=== PATIENT | male | born 1945 | race Caucasian/White ===

== ENCOUNTER 2022-01-04 22:01 | Inpatient (IN) | payer MEDICARE ==
[~2022-01-04] VITALS: Ht 182.9 cm; Wt 71.7 kg
[~2022-01-04 22:01] MED LIST: ANORO ELLIPTA1 EACH PO; CARDIZEM CD120 MG PO; CERTAGEN1 EACH PO; CLARITIN10 MG PO; DEPAKOTE250 MG PO; IRON325 M1 PO; KEPPRA1000 MG PO; LASIX20 MG PO; LEVAQUIN500 MG PO; LOVAZA1 GM PO; PREDNISONE 20MG20 MG PO; PRILOSEC20 MG PO; PROAIR HFA8.5 GM PO; PROSCAR5 MG PO; SYNTHROID100 MCG PO; TAMIFLU 75MG CA75 MG PO; TESSALON PERLE100 MG PO; XARELTO20 MG PO; ZESTRIL2.5 MG PO
[2022-01-04 23:43] LABS: BASOPHIL 0.4 % (0-2); EOSINOPHIL 0.2 % (0-7); HCT 42.2 % (42.0-52.0); HGB 14.5 g/dl (13.2-18.0); LYMPHOCYTE 9.4 % (15-48); MCHC 34.4 g/dL (32.0-36.0); MCV 93.2 fL (78.0-100.0); MONOCYTE 20.8 % (0-12); MPV 10.3 fL (6.0-9.5); NRBC 0; PLT 174 K/uL (150-400); RBC 4.53 M/uL (4.70-6.00); RDW 12.9 % (11.5-14.0); WBC 12.2 K/uL (4.0-10.5)
[2022-01-04 23:50] LABS: NEUTROPHIL 68.8 % (41-80)
[2022-01-05 00:08] LABS: BUN/CREAT RATIO (CALC) 20.6 RATIO; CREATININE 1.55 mg/dL (0.67-1.17); GLOBULIN (CALCULATION) 4.5 g/dL; POTASSIUM 4.5 mmol/L (3.5-5.1); TOTAL PROTEIN 7.5 g/dL (6.4-8.2)
[2022-01-05 05:15] LABS: CORONAVIRUS 2019 SARS-COV-2 NEGATIVE (NEGATIVE); INFLUENZA A NAA NEGATIVE (NEGATIVE)
[2022-01-05 07:26] LABS: HCT 36.6 % (42.0-52.0); HGB 12.8 g/dl (13.2-18.0); MCH 32.1 pg (25.0-31.0); MCV 91.7 fL (78.0-100.0); MPV 10.5 fL (6.0-9.5); RBC 3.99 M/uL (4.70-6.00); RDW 12.9 % (11.5-14.0); WBC 9.4 K/uL (4.0-10.5)
[2022-01-05 08:15] LABS: ALBUMIN 2.6 g/dL (3.4-5.0); BILIRUBIN - TOTAL 0.7 mg/dL (0.2-1.0); CREATININE 1.54 mg/dL (0.67-1.17); POTASSIUM 3.8 mmol/L (3.5-5.1); TOTAL PROTEIN 6.6 g/dL (6.4-8.2)
[2022-01-05 11:02] LABS: FOLIC ACID (SERUM) 33.3 ng/mL (8.6-58.9)
--- NOTE | 2022-01-06 14:01 | NUR ---
Mr. Lara lives at home with his spouse. He has 02 for nocturnal use. He does not have a portable tank. He is independent and works part-time [facility] [employer]. - Mr. Lara was transferred to [facility] on 01/05.
== END 2022-01-05 18:02 | disposition other institution (70) | DRG 871 ==
LOC: FER 22:01 → FTCU 01-05 06:28
PROVIDERS: Internal Medicine; ADMIT Internal Medicine
DX: A41.9 Sepsis, unspecified organism (principal); I50.23 Acute on chronic systolic (congestive) heart failure; J96.21 Acute and chronic respiratory failure with hypoxia; I48.92 Unspecified atrial flutter; J44.1 Chronic obstructive pulmonary disease with (acute) exacerbation; J44.0 Chronic obstructive pulmonary disease with (acute) lower respiratory infection; N17.9 Acute kidney failure, unspecified; E87.1 Hypo-osmolality and hyponatremia; I13.0 Hypertensive heart and chronic kidney disease with heart failure and stage 1 through stage 4 chronic kidney disease, or unspecified chronic kidney disease; R65.20 Severe sepsis without septic shock; Z20.822 Contact with and (suspected) exposure to COVID-19; N18.30 Chronic kidney disease, stage 3 unspecified; G40.909 Epilepsy, unspecified, not intractable, without status epilepticus; D50.9 Iron deficiency anemia, unspecified; I48.0 Paroxysmal atrial fibrillation; I25.10 Atherosclerotic heart disease of native coronary artery without angina pectoris; N40.0 Benign prostatic hyperplasia without lower urinary tract symptoms; Z98.890 Other specified postprocedural states; Z72.89 Other problems related to lifestyle; Z82.49 Family history of ischemic heart disease and other diseases of the circulatory system; Z82.3 Family history of stroke; Z80.9 Family history of malignant neoplasm, unspecified; Z99.81 Dependence on supplemental oxygen; Z90.49 Acquired absence of other specified parts of digestive tract; Z87.891 Personal history of nicotine dependence; Z86.11 Personal history of tuberculosis; Z79.899 Other long term (current) drug therapy
CPT/HCPCS: 36415; 36600; 71045; 80053; 80061; 82607; 82746; 82803; 83540; 83550; 83605; 83690; 83880; 84145; 84439; 84443; 84484; 85025; 87070; 87205; 93005; 94640; 94664; 94667; 96372; 97162; 97166; J0282; J0456; J0696; J1650; J1940; J2930; J7050; J7060; J7512; U0002